=== PATIENT | male | born 1940 | race Caucasian/White ===

== ENCOUNTER 2017-01-17 19:30 | Emergency (ER) | payer OTHER ==
--- NOTE | ~2017-01-17 | CT2 ---
[facility] A Service of [facility] RADIOLOGY TEXT RESULTS PATIENT: JAMES LORD LOCATION: [facility] : 44 UNIT #: [id number] AGE: [address]: Darell Yanez MD SEX: M ORDER DR: [id number] [facility] [address] [place], [place] [address] [id number] E MR#: [id number] #: [id number] NAME: JAMES LORD : 1940 SEX: M STUDY DATE/TIME: 01/17/2017 22:21 UNIT: [facility] ROOM: STUDY DESCRIPTION: CT Abd and Pelv W Cont Attending Physician: Darell Yanez M.D. Ordering Physician: James Huber M.D. Primary Care Physician: Joyce Trammell M.D. MEDICAL IMAGING REPORT This report is preliminary unless electronic signature is present EXAM CT abdomen and pelvis with contrast. INDICATION Generalized abdominal pain, nausea and vomiting today. PROCEDURE Contrast-enhanced CT abdomen and pelvis 100 mL of Isovue-370. This CT exam was performed with one or more of the following radiation dose reduction techniques: automatic exposure control, adjustment of mA and/or kV according to patient size, and iterative reconstruction. COMPARISON 06/01/2008 FINDINGS ABDOMEN WITH CONTRST: Included lung bases predominately clear. Questionably cirrhotic morphology of the liver. Suspicion for a subtle mass in the right lobe of the liver measuring up to 3.8 cm. Spleen mildly enlarged at 13.2 cm. The adrenal glands, pancreas are unremarkable. A 1.6 cm indeterminate lesion in the left kidney. Uncomplicated cholelithiasis. The bowel loops are nondilated. There is no ascites. The appendix is normal. PELVIS WITH CONTRAST: No pelvic mass or fluid. No aggressive-appearing bone lesion. IMPRESSION 1. No clearly acute finding. [facility] A Service of [facility] RADIOLOGY TEXT RESULTS PATIENT: JAMES LORD LOCATION: [facility] : 44 UNIT #: [id number] AGE: [address]: Darell Yanez MD SEX: M ORDER DR: 2. Cirrhotic morphology of the liver is a notable change since 2007. There is suspicion for a 3.8 cm mass in the right hepatic lobe. Recommend evaluation with a non emergent abdominal MRI or liver protocol CT. 3. Uncomplicated cholelithiasis. 4. Indeterminate lesion in the left kidney can be characterized at the time of the MRI or CT. Dictated by... De Diehl M.D. THIS IS AN ELECTRONICALLY VERIFIED REPORT De Diehl M.D. at 01/22/2017 7:30 AM KAREEM/haven TD: 01/18/2017 01:26 JOB #: [id number] MEDICAL IMAGING REPORT Page 1 of 1 COPY
[2017-01-17 19:53] LABS: BASOPHIL% 0.2 % (0-2.5); EOSINOPHIL# 0.1 X10e3 (0-0.7); EOSINOPHIL% 0.7 % (0.0-7.0); HEMATOCRIT 44.3 % (38.0-50.0); LYMPHOCYTE# 1.9 X10e3 (1.0-3.5); MEAN CELL VOLUME 83.7 FL (83-96); MEAN CORPUSCULAR HEMOGLOBIN 26.4 PG (28-34); MEAN CORPUSCULAR HGB CONC 31.5 g/dL (30-36); MEAN PLATELET VOLUME 10.6 FL (6.5-11.5); MONOCYTE# 1.1 X10e3 (0-1.0); MONOCYTE% 6.1 % (3.0-12.0); NEUTROPHIL# 14.3 X10e3 (1.5-7.1); PLATELET COUNT 191 X10e3 (140-420); RED CELL DISTRIBUTION WIDTH 15.3 % (11.0-15.5); WHITE BLOOD COUNT 17.4 X10e3 (4.0-10.5)
[2017-01-17 19:54] LABS: DIFF IND YES
[2017-01-17] MEDS ORDERED: COREG6.25 MG PO (20:07)
[2017-01-17] MEDS ORDERED: HYDROCHLOROTHIA25 MG PO (20:07)
[2017-01-17] MEDS ORDERED: ALB/IPRATROPIUM/1 E1 INH (20:08)
[2017-01-17] MEDS ORDERED: NOVOLIN 70100 UNITS/ SUBQ (20:08)
[2017-01-17] MEDS ORDERED: LISINOPRIL20 MG PO (20:08)
[2017-01-17] MEDS ORDERED: METFORMIN HCL500 M3 PO (20:08)
[2017-01-17] MEDS ORDERED: PROAIR HFA8.5 GM INH (20:09)
[2017-01-17] MEDS ORDERED: KIONEX15 GM/60 M PO (20:09)
[2017-01-17] MEDS ORDERED: CARDURA4 M2 PO (20:09)
[2017-01-17 20:16] LABS: PLATELET ESTIMATE NORMAL (NORMAL); RBC NORMAL YES
[2017-01-17 20:19] LABS: ALBUMIN SERUM 4.6 g/dL (3.5-5.0); BILIRUBIN, DIRECT 0.1 mg/dL (0.0-0.2); BILIRUBIN,INDIRECT 0.4 mg/dL (0.0-0.9); BILIRUBIN,TOTAL 0.5 mg/dL (0.2-2.0); BUN/CREATININE RATIO 14.54; CREATININE SERUM 1.1 mg/dL (0.6-1.4); GLOM FILT RATE Estimated 65.8 mL/min (>60); POTASSIUM 4.4 mmol/L (3.5-5.1); PROTEIN TOTAL SERUM 8.1 g/dL (6.0-8.3)
[2017-01-17 21:28] LABS: URINE SOURCE CLEAN CATCH
[2017-01-17 22:15] LABS: URINE APPEARANCE CLEAR; URINE BILIRUBIN NEG (NEG); URINE BLOOD NEG (NEG); URINE COLOR DK YELLOW; URINE GLUCOSE 250 MG/DL (NEG); URINE KETONE TRACE (NEG); URINE LEUKOCYTE ESTERASE TRACE (NEG); URINE NITRATE NEG (NEG); URINE PROTEIN 3+ (NEG); URINE SPECIFIC GRAVITY 1.023 (1.003-1.035)
[2017-01-17 22:18] LABS: CULTURE INDICATED? YES; URINE BACTERIA AUWI NEG (NEGATIVE); URINE SQUAMOUS EPITHELIAL CELL FEW /[HPF]
[2017-01-17 22:26] LABS: U HYALINE CASTS AUWI 50-100 /[LPF]
== END 2017-01-18 00:30 | disposition home or self-care (01) ==
LOC: CED 19:30
DX: R10.9 Unspecified abdominal pain (principal); R11.2 Nausea with vomiting, unspecified; E11.9 Type 2 diabetes mellitus without complications; F17.200 Nicotine dependence, unspecified, uncomplicated; Z79.899 Other long term (current) drug therapy; Z79.4 Long term (current) use of insulin
CPT/HCPCS: 36415; 74177; 80048; 80076; 81003; 83690; 85025; 87086; 96361; 96374; 99284; J2405; Q9967